=== PATIENT | female | born 1970 | race Caucasian/White ===

== ENCOUNTER 2020-11-27 10:02 | Outpatient (CLI) | payer BC, SELFPAY ==
[2020-11-27 18:36] LABS: Add Urine Microscopic? YES; Appearance Urine Cloudy (Clear); Bilirubin Urine Negative (Negative); Blood Urine Negative (Negative); Color Urine Yellow (Yellow); Glucose Urine UA Negative (Negative); Ketones Urine Negative (Negative); Leukocyte Esterase Ur Negative LEU/UL (Negative); Nitrate Urine Negative (Negative); Protein Urine Negative (Negative); RBC Urine 0-2 /hpf (0-2); Specific Grav Ur 1.011 (1.001-1.035); Urobilinogen Urine Negative mg/dL (<2.0); WBC Urine 0-3 /hpf
[2020-11-27 18:45] LABS: Alanine Aminotransferase 17 U/L (4-35); Albumin Level 4.6 g/dL (3.5-5.1); Alkaline Phosphatase 58 U/L (38-126); Anion Gap 14 mmol/L (8-16); Aspartate Amino Transferase 25 U/L (14-36); Bilirubin,Total 0.7 mg/dL (0.2-1.3); Blood Urea Nitrogen 13 mg/dL (7-17); Calcium 9.7 mg/dL (8.4-10.2); Carbon Dioxide 26 mmol/L (22-30); Chloride 99 mmol/L (98-107); Cholesterol 195 mg/dL (0-200); Estimated Glomerular Filt Rate > 60; Glucose 104 mg/dL (65-110); HDL Direct 52 mg/dL; Potassium 3.9 mmol/L (3.4-5.0); Sodium 139 mmol/L (137-145); Triglycerides 125 mg/dL (<150)
[2020-11-27 18:50] LABS: Rheumatoid Factor < 8.6 IU/ML (<12)
[2020-11-27 18:51] LABS: Hemoglobin A1C 5.2 % (<5.7)
[2020-11-27 18:56] LABS: LDL Cholesterol Direct 112 mg/dL
[2020-11-27 19:02] LABS: Vitamin D 25 Hydroxy 49.2 ng/mL
== END 2020-11-27 10:03 | disposition home or self-care (01) ==
LOC: ANHBWCLAB 10:03
PROVIDERS: PCP Nurse Practitioner; Visit Provider Nurse Practitioner
DX: Z13.1 Encounter for screening for diabetes mellitus (principal); Z13.21 Encounter for screening for nutritional disorder; Z13.220 Encounter for screening for lipoid disorders; Z13.29 Encounter for screening for other suspected endocrine disorder; Z13.6 Encounter for screening for cardiovascular disorders; G89.29 Other chronic pain; M25.50 Pain in unspecified joint
CPT/HCPCS: 36415; 80053; 80061; 81001; 82306; 83036; 84443; 86038; 86430

== ENCOUNTER 2021-01-16 08:03 | Outpatient (CLI) | payer BC, SELFPAY ==
--- NOTE | ~2021-01-16 | MM_ITS ---
EXAMINATION: MM screening edenilson BI w robert HISTORY: Screening mammogram TECHNIQUE: Craniocaudal and mediolateral oblique 3-D tomosynthesis images were obtained and synthetic 2-D images were generated. CAD analysis was submitted and interpreted. COMPARISON: No prior mammogram is available for comparison at this institution. BREAST PARENCHYMAL COMPOSITION: FINDINGS: An approximately 3 x 4 x 5.5 mm circumscribed opacity is noted posteriorly in the outer mid right breast. This is likely benign, possibly an intramammary lymph node. There is mild fibroglandular asymmetry. Comparison with prior mammogram reportedly performed at [facility] in [place], [place] is recommend ed. Otherwise there is no evidence of suspicious mass, calcification, or architectural distortion to sugg est malignancy in either breast. IMPRESSION: 1. Mild fibroglandular asymmetry and probably benign 3 x 5.5 mm circumscribed opacity in the posterio r outer mid right breast 2. Comparison with prior mammogram at [facility] in [place], [place] is recommended. BI-RADS Category 0: Incomplete: Needs additional imaging evaluation. Reviewed, dictated and finalized at location A. IMPRESSION: 1. Mild fibroglandular asymmetry and probably benign 3 x 5.5 mm circumscribed o pacity in the posterior outer mid right breast 2. Comparison with prior mammogram at [facility] in [place], [place] is recom mended. BI-RADS Category 0: Incomplete: Needs additional imaging evaluation.
--- NOTE | ~2021-01-16 | DEXA_ITS ---
Bone Density Report Name: Martha Velez Age: 50 Sex: Female Ethnicity: White Date of : 1970 Indication: postmenopausal; parental hip fracture; height loss; hysterectomy; Referring Provider: Maria R Stringer Study: Bone densitometry was performed. Exam Date: January 16, 2021 Accession number: [id number] Bone Density: Region BMD T-score Z-score Classification AP Spine (L1-L4) 0.889 -1.4 -0.5 Osteopenia Femoral Neck (Left) 0.785 -0.6 0.3 Normal Total Hip (Left) 0.975 0.3 0.8 Normal Total Hip Bilateral Avg 0.960 0.2 0.7 Normal Femoral Neck (Right) 0.808 -0.4 0.5 Normal Total Hip (Right) 0.944 0.0 0.6 Normal World Health Organization criteria for BMD impression classify patients as: Normal (T-score at or above -1.0), Osteopenia (T-score between -1.0 and -2.5), or Osteoporosis (T-score at or below -2.5). 10-year Fracture Risk(1): Major Osteoporotic Fracture 9.1% Hip Fracture 0.3% Reported Risk Factors: [place] (), Neck BMD=0.785, BMI=26.3, parental fracture, smoking (1) FRAX(R) Version 3.08. Fracture probability calculated for an untreated patient. Fracture probability may be lower if the patient has received treatment. Previous Exams: Region Exam Age BMD T-score BMD Change BMD Change Date g/cm2 vs Baseline vs Previous AP Spine(L1-L4) 01/16/2021 50 0.889 -1.4 -0.048(-5.1%)* -0.048(-5.1%)* 04/30/2015 44 0.936 -1.0 Total Hip(Left) 01/16/2021 50 0.975 0.3 -0.013(-1.3%) -0.013(-1.3%) 04/30/2015 44 0.987 0.4 Total Hip(Right) 01/16/2021 50 0.944 0.0 -0.036(-3.7%)* -0.036(-3.7%)* 04/30/2015 44 0.979 0.3 *Denotes significance at 95% confidence level, LSC for AP Spine = 0.022 g/cm2, LSC for Total Hip = 0.027 g/cm2 Clinical Information Provided by Patient: Parent has had a hip fracture Smokes Has used the following medications: Vitamin D, Calcium Has the following medical conditions: Hysterectomy Patient maximum height was 66 Menopause Age: 42 No regular weight bearing exercise Drinks caffeinated beverages Onset of menses at age 12 Number of children 2 Impression: The patient has low bone mass, based on the Total Spine T-score. The patient has an estimated ten-year risk of hip fracture of 0.3% and an estimated ten-year risk of major fracture of 9.1%, based on the WHO FRAX algorithm. The patient has risk factors, including: parental hip fracture, smoking. The BMD for the AP Spine(L1-L4) decreased, c
== END 2021-01-16 08:04 | disposition home or self-care (01) ==
LOC: ANHIMG 08:04
PROVIDERS: PCP Internal Medicine; Visit Provider Nurse Practitioner
DX: Z12.31 Encounter for screening mammogram for malignant neoplasm of breast (principal); Z78.0 Asymptomatic menopausal state; R92.8 Other abnormal and inconclusive findings on diagnostic imaging of breast; M85.88 Other specified disorders of bone density and structure, other site
CPT/HCPCS: 77063; 77067; 77080

== ENCOUNTER 2021-02-14 11:14 | Outpatient (CLI) | payer BC, SELFPAY ==
--- NOTE | ~2021-02-14 | MMUS_ITS ---
EXAMINATION: MM diagnostic edenilson RT w robert, US breast RT limited HISTORY: Right breast mass on screening mammogram TECHNIQUE: Additional 3-D tomosynthesis images of the right breast were performed and synthetic 2-D i mages were generated. CAD analysis was submitted and interpreted. High resolution limited right breas t ultrasound was performed. COMPARISON: 01/16/2021, 10/19/2015 FINDINGS: MAMMOGRAPHIC FINDINGS: There is a 7 mm x 4 mm oval, circumscribed, low density mass with possible central fat in the posteri or third of the breast at the 9:00 location 6 cm from the nipple. ULTRASOUND: There are benign appearing intramammary lymph nodes at the 9:00 and 10:00 location in the breast. No suspicious cystic or solid mass is identified. IMPRESSION: 1. No mammographic or sonographic evidence of malignancy. 2. Recommend routine screening mammography in one year. BI-RADS Category 2: Benign finding(s). Reviewed, dictated and finalized at location A. D LIABILITY GENERALIST IMPRESSION: 1. No mammographic or sonographic evidence of malignancy. 2. Recommend routine screening mammography in one year. BI-RADS Category 2: Benign finding(s).
== END 2021-02-14 11:15 | disposition home or self-care (01) ==
LOC: ANHIMG 11:15
PROVIDERS: PCP Internal Medicine; Visit Provider Nurse Practitioner
DX: N63.11 Unspecified lump in the right breast, upper outer quadrant (principal)
CPT/HCPCS: 76642; 77061; 77065; G0279

== ENCOUNTER 2021-02-15 00:49 | Day surgery (SDC) | payer BC, SELFPAY ==
[2021-01-30 14:59] VITALS: BMI 25.8
[2021-02-15 11:41] VITALS: BP 112/73; PULSE 78; RESP 16; TEMP 36.1; O2SAT 100
[2021-02-15] MEDS: LACTATED RINGERS 1,000 ML 150 ML IV CONT (11:43)
--- NOTE | 2021-02-15 12:11 | WPDANESEPPF ---
Anes - Initial Pre Proc Eval Procedure: Operation Date: 02/15/21 12:30 Proposed Procedures p Screening Colonoscopy - Demetrius Maxwell MD Date/Time: 02/15/21 12:11 Surgeon: Demetrius Maxwell MD Pre Op Diagnosis: neoplasm screening Patient Data Age: 50 Gender: F Height: 1.65 m Weight: 71.7 kg Last Vital Signs Temp 97.0 F L 02/15/21 11:41 Pulse 78 02/15/21 11:41 Resp 16 02/15/21 11:41 BP 112/73 02/15/21 11:41 Pulse Ox 100 02/15/21 11:41 Allergies Allergy/AdvReac Type Severity Reaction Status Date / Time amoxicillin Allergy Unknown Hives Verified 02/15/21 11:40 Penicillins Allergy Unknown Hives Verified 02/15/21 11:40 Home Medications Medication Instructions Recorded Confirmed Type B-complex with vitamin C 1 cap PO DAILY 11/15/20 01/30/21 History glucosamine HCl 1,500 mg tablet 1,500 mg PO DAILY 11/15/20 01/30/21 History multivit with 1 tablet PO DAILY 11/15/20 01/30/21 History nvpyadcb-xsux-RX-lutein 8 mg iron-400 mcg-300 mcg tablet omega-3 fatty acids 1,000 mg 1,000 mg PO BID 11/15/20 01/30/21 History capsule glucosamine-chondroitin 250 mg-200 2 tablet PO TID 11/27/20 01/30/21 History mg tablet mirabegron 25 mg tablet,extended 25 mg PO DAILY #90 tablet 11/27/20 01/30/21 Rx release 24 hr trospium 20 mg tablet 20 mg PO BID #180 tablet 11/30/20 02/15/21 Rx Patient hx anesthesia problems: none Family hx anesthesia problems: none Results Review: All pre-operative results and documents have been reviewed as part of the pre-operative evaluation. 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 MRSA (methicillin resistant staph aureus) culture positive Suspected COVID-19 virus infection Surgical History Surgical History H/O hemorrhoidectomy History of nasal surgery History of partial hysterectomy Family History Family History (Updated 11/27/20 @ 09:36 by Rosa Maria Contreras) Grandparent Family history of heart disease in male family member before age 55 Diabetes mellitus Mother Alcoholism Hypertension Depression Anxiety Asthma Primary cancer of bone marrow Heart disease Parkinson disease Osteoporosis Father Alcoholism Sibling Alcoholism Breast cancer Disorder of thyroid Social History Social History Smoking status: Former smoker Tobacco type: e-cigarettes/vaping Second hand tobacco smoke exposure: Yes Alcohol intake: current Substance use: former Substance use type: former substance user Other substance usage details: it was in the past 1990; marijuana and cocaine 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 Gender identity (if verbalized by the patient): Female Sexual Orientation (if Verbalized by the Patient): Straight or Heterosexual Spiritual care concerns: No Anes - Eval Final PreProcedure Day of Procedure 02/15/21 12:11 Patient weight: normal Heart: regular rate and rhythm Lungs: clear to auscultation Airway: Mallampati scale class II Neurological: alert and oriented Last oral intake: >/= 8 hours ASA classification: II Emergent: no Anesthetic plan: proceed Anesthesia type and monitoring: general GIVS and standard monitoring Results Review: All pre-operative results and documents have been reviewed as part of the pre-operative evaluation. Informed Consent: The patient's anesthetic plan and its attendant risks and benefits were discussed with the patient/family/POA. Questions were solicited and answers provided to the satisfaction of the patient/family/POA.
--- NOTE | 2021-02-15 12:52 | PM.HPGS ---
History of Present Illness History of Present Illness Consent: Risks, benefits, and alternatives have been discussed and questions answered. Patient agrees to proceed with procedure. Chief complaint: neoplasm screening Narrative: Martha Velez is a 50 year old female here for first screening colonoscopy Review of Systems Constitutional: Constitutional: Denies headache(s) and Denies weakness Eyes: Eyes: Denies blurry vision ENT: Reports Normal hearing present, Denies headache(s) and Denies neck pain Cardiovascular: Cardiovascular: Denies chest pain and Denies dyspnea Respiratory: Respiratory: Denies dyspnea Gastrointestinal: Gastrointestinal: Reports no additional gastrointestinal complaints Genitourinary: Genitourinary: Denies dysuria Musculoskeletal: Musculoskeletal: Denies neck pain Integumentary/Breasts: Skin/Breast: Denies dry skin Neurologic: Reports Normal hearing present, Denies headache(s) and Denies weakness Psychiatric: Psychiatric: Denies anxiety Endocrine: Endocrine: Denies change in body appearance Hematologic/Lymphatic: Hematologic/Lymphatic: Denies easy bleeding Allergic/Immunologic: Allergic/Immunologic: Denies urticaria PMFSH Past Medical History Medical History (Updated 01/16/21 @ 17:58 by Maria R Stringer 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-C) Heart problem 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 MRSA (methicillin resistant staph aureus) culture positive Suspected COVID-19 virus infection Surgical History Surgical History H/O hemorrhoidectomy History of nasal surgery History of partial hysterectomy Family History Family History (Updated 11/27/20 @ 09:36 by Rosa Maria Contreras) Grandparent Family history of heart disease in male family member before age 55 Diabetes mellitus Mother Alcoholism Hypertension Depression Anxiety Asthma Primary cancer of bone marrow Heart disease Parkinson disease Osteoporosis Father Alcoholism Sibling Alcoholism Breast cancer Disorder of thyroid Social History Social History Smoking status: Former smoker Tobacco type: e-cigarettes/vaping Second hand tobacco smoke exposure: Yes Alcohol intake: current Substance use: former Substance use type: former substance user Other substance usage details: it was in the past 1990; marijuana and cocaine 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 Gender identity (if verbalized by the patient): Female Sexual Orientation (if Verbalized by the Patient): Straight or Heterosexual Spiritual care concerns: No Meds Home Medications and Allergies Home Medications Medication Instructions Recorded Confirmed Type B-complex with vitamin C 1 cap PO DAILY 11/15/20 01/30/21 History glucosamine HCl 1,500 mg tablet 1,500 mg PO DAILY 11/15/20 01/30/21 History multivit with 1 tablet PO DAILY 11/15/20 01/30/21 History lgrpupqn-rhup-YJ-lutein 8 mg iron-400 mcg-300 mcg tablet omega-3 fatty acids 1,000 mg 1,000 mg PO BID 11/15/20 01/30/21 History capsule glucosamine-chondroitin 250 mg-200 2 tablet PO TID 11/27/20 01/30/21 History mg tablet mirabegron 25 mg tablet,extended 25 mg PO DAILY #90 tablet 11/27/20 01/30/21 Rx release 24 hr trospium 20 mg tablet 20 mg PO BID #180 tablet 11/30/20 02/15/21 Rx Allergies Allergy/AdvReac Type Severity Reaction Status Date / Time amoxicillin Allergy Unknown Hives Verified 02/15/21 11:40 Penicillins Allergy Unknown Hives Verified 02/15/21 11:40 Vital Signs Vital Signs - 24 hr 02/15/21 11:41 Temperature 97.0 F L Pulse Rate 78 Respiratory Rate 16 Blood Pressure 112/73 Pulse Oximetry 100 Exam Const: General: comfortable and no acute distress HENMT: General nose exam: Normal nares present Eyes: General: appearance normal, both eyes and all related structures Neck: Neck: no JVD Resp: Auscultation:
[2021-02-15 13:15] VITALS: BP 99/67; PULSE 66; RESP 14; O2SAT 100
[2021-02-15 13:25] VITALS: BP 96/69; PULSE 72; RESP 14; O2SAT 100
[2021-02-15 13:35] VITALS: BP 101/60; PULSE 73; RESP 17; O2SAT 100
== END 2021-02-15 13:52 | disposition home or self-care (01) ==
PROVIDERS: PCP Internal Medicine; Visit Provider Internal Medicine Gastroenterology
PROC: 0DJD8ZZ Inspection of Lower Intestinal Tract, Via Natural or Artificial Opening Endoscopic (ICD-10-PCS; CPT 45378; principal; 2021-02-15 12:30)
DX: Z12.11 Encounter for screening for malignant neoplasm of colon (principal); K57.30 Diverticulosis of large intestine without perforation or abscess without bleeding; K63.3 Ulcer of intestine; K52.89 Other specified noninfective gastroenteritis and colitis; K64.8 Other hemorrhoids; K64.4 Residual hemorrhoidal skin tags; Z87.891 Personal history of nicotine dependence
CPT/HCPCS: 45380; 88305; J2704; J7120